=== PATIENT | male | born 1940 | race Caucasian/White ===

== ENCOUNTER → 2017-11-23 | Outpatient (CLI) | payer MEDICARE ==
[~2017-11-23] MED LIST: ASPI-496 PO; PRAV20TA2 PO
[2017-11-23 09:55] LABS: MICROSCOPIC NOT IND
[2017-11-23 09:58] LABS: BASOPHILS # (AUTO) 0.02 x10^3/uL (0-0.1); BASOPHILS % (AUTO) 0 % (0-1); EOSINOPHILS # (AUTO) 0.28 x10^3/uL (0-0.4); EOSINOPHILS % (AUTO) 4 % (1-7); LYMPHOCYTES # (AUTO) 1.37 x10^3/uL (1-3.4); LYMPHOCYTES % (AUTO) 21 % (22-44); MD NO; MEAN CORPUSCULAR HEMOGLOBIN 29.8 pg (27.5-34.5); MEAN CORPUSCULAR HGB CONC 33.9 g/dL (33.2-36.2); MEAN PLATELET VOLUME 8.1 fL (7.4-10.4); MONOCYTES # (AUTO) 0.45 x10^3/uL (0.2-0.8); MONOCYTES % (AUTO) 7 % (2-9); NEUTROPHILS # (AUTO) 4.34 x10^3/uL (1.8-6.8); NEUTROPHILS % (AUTO) 67 % (42-75); PLATELET COUNT 158 x10^3/uL (130-400); RED BLOOD COUNT 5.01 x10^6/uL (4.38-5.82); RED CELL DISTRIBUTION WIDTH 14.2 % (9.4-14.8)
[2017-11-23 10:07] LABS: ANION GAP 5 mmol/L (5-15); CHLORIDE 107 mmol/L (98-107)
[2017-11-23 10:11] LABS: CULTURE INDICATED? NO
== END | disposition home or self-care (01) ==
LOC: STAR 08:37
PROVIDERS: ATTEND Orthopaedic Surgery
DX: Z01.818 Encounter for other preprocedural examination (principal); M17.11 Unilateral primary osteoarthritis, right knee; I45.10 Unspecified right bundle-branch block; I25.2 Old myocardial infarction
CPT/HCPCS: 36415; 80048; 81003; 85025; 87081; 93005

== ENCOUNTER 2017-11-28 06:20 | Observation (INO) | payer MEDICARE ==
[~2017-11-28] VITALS: Ht 182.9 cm; Wt 99.0 kg
[2017-11-28] MEDS ORDERED: ACETAMINOPHEN 500 MG TABLET PO ONE (07:00)
[2017-11-28] MEDS ORDERED: ONDANSETRON ODT 8 MG PO ONE (07:00)
[2017-11-28] MEDS ORDERED: TAMSULOSIN 0.4 MG CAP.ER.24H PO ONE (07:00)
[2017-11-28] MEDS ORDERED: GABAPENTIN 300 MG CAPSULE PO ONE (07:00)
[2017-11-28] MEDS ORDERED: LACTATED RINGERS 1,000 ML IV SCH (07:01)
[2017-11-28] MEDS ORDERED: VARE1TAB21 PO (07:23)
[2017-11-28] MEDS ORDERED: MIDAZOLAM 1 MG/ML, 2ML ONE (08:11)
[2017-11-28] MEDS ORDERED: FENTANYL PF 100 MCG/2ML ONE (08:11)
[2017-11-28] MEDS ORDERED: PROPOFOL 50 ML ONE (08:32)
[2017-11-28] MEDS ORDERED: KETOROLAC 60 MG/2 ML ONE (08:40)
[2017-11-28] MEDS ORDERED: ROPIvacaine/PF 0.2%, 20 ML ONE (08:40)
[2017-11-28] MEDS ORDERED: TRANEXAMIC ACID 100 MG/ML, 10ML ONE (08:40)
[2017-11-28] MEDS ORDERED: SODIUM CHLORIDE 0.9% 100 ML ONE (08:41)
[2017-11-28] MEDS ORDERED: EPINEPHRINE 1 MG/ML, 1ML ONE (08:41)
[2017-11-28] MEDS ORDERED: DEXAMETHASONE 4 MG/ML, 1ML ONE (08:57)
[2017-11-28] MEDS ORDERED: PROPOFOL 10 MG/ML, 50ML ONE (08:57)
[2017-11-28] MEDS ORDERED: CEFAZOLIN 1,000 MG ONE (08:57)
[2017-11-28] MEDS ORDERED: SENNA/DOCUSATE TABLET PO PRN (11:00)
[2017-11-28] MEDS ORDERED: PROMETHAZINE 25 MG/ML, 1ML IM PRN (11:00)
[2017-11-28] MEDS ORDERED: HYDROcodone/APAP 5/325 TABLET PO PRN (11:00)
[2017-11-28] MEDS ORDERED: FENTANYL PF 100 MCG/2ML IV PRN (11:00)
[2017-11-28] MEDS ORDERED: OXYcodone IR 5MG TABLET PO PRN (11:00)
[2017-11-28] MEDS ORDERED: ONDANSETRON 4 MG TABLET PO PRN (11:00)
[2017-11-28] MEDS ORDERED: MAGNESIUM HYDROXIDE 8%, 30ML UDC PO PRN (11:00)
[2017-11-28] MEDS ORDERED: HYDROmorphone 1 MG/ML, 1ML IV PRN ×2 (11:00)
[2017-11-28] MEDS ORDERED: ACETAMINOPHEN 650 MG/20.3 ML UDC PO PRN (11:00)
[2017-11-28] MEDS ORDERED: PROMETHAZINE 12.5 MG SUPP PR PRN (11:00)
[2017-11-28] MEDS ORDERED: ONDANSETRON 2MG/ML, 2ML IV PRN ×2 (11:00)
[2017-11-28] MEDS ORDERED: MEPERIDINE/PF 25MG/0.5ML IVPush PRN (11:00)
[2017-11-28] MEDS ORDERED: MIDAZOLAM 1 MG/ML, 2ML IV PRN (11:00)
[2017-11-28] MEDS ORDERED: ALUMINUM/MAG/SIMETHICONE 30 ML UDC PO PRN (11:00)
[2017-11-28] MEDS ORDERED: DIAZEPAM 5 MG TABLET PO PRN (11:00)
[2017-11-28] MEDS ORDERED: OXYcodone 5 MG/5 ML ORAL.SOL UDC PO PRN (11:00)
[2017-11-28] MEDS ORDERED: LABETALOL 5MG/ML, 20ML IV PRN (11:00)
[2017-11-28] MEDS ORDERED: ZOLPIDEM 5MG TABLET PO PRN (11:00)
[2017-11-28] MEDS ORDERED: TRANEXAMIC ACID 1,000 MG in SODIUM CHLORIDE 0.9% 100 ML IVPB ONE (11:00)
[2017-11-28] MEDS ORDERED: DIPHENHYDRAMINE 25 MG CAPSULE PO PRN (11:00)
[2017-11-28] MEDS ORDERED: BISACODYL 10 MG SUPP PR PRN (11:00)
[2017-11-28] MEDS ORDERED: PROMETHAZINE 25 MG/ML, 1ML IV PRN (11:00)
[2017-11-28] MEDS ORDERED: OXYcodone 5 MG/5 ML ORAL.SOL UDC ONE (11:29)
[2017-11-28 12:45] VITALS: BP 143/74
[2017-11-28] MEDS ORDERED: CEFAZOLIN 2,000 MG in SODIUM CHLORIDE 0.9% 50 ML IVPB SCH (13:00)
[2017-11-28] MEDS: D5%-0.45% NACL 1,000 ML IV SCH (17:21)
[2017-11-28] MEDS: CEFAZOLIN 2,000 MG in SODIUM CHLORIDE 0.9% 50 ML IVPB SCH (17:21)
[2017-11-28] MEDS: ASPIRIN 81 MG TABLET EC PO SCH (18:00)
[2017-11-28 18:40] VITALS: BP 135/69
[2017-11-28] MEDS: DOCUSATE 100 MG CAPSULE PO SCH (19:54)
[2017-11-28] MEDS ORDERED: PRAVASTATIN 20 MG TABLET PO SCH (21:00)
[2017-11-28 23:50] VITALS: BP 122/59
[2017-11-29] MEDS: CEFAZOLIN 2,000 MG in SODIUM CHLORIDE 0.9% 50 ML IVPB SCH (01:16)
[2017-11-29] MEDS: D5%-0.45% NACL 1,000 ML IV SCH (03:00)
[2017-11-29 03:48] VITALS: BP 129/73
[2017-11-29] MEDS: ASPIRIN 81 MG TABLET EC PO SCH (05:41)
[2017-11-29] MEDS ORDERED: DEXAMETHASONE 4 MG/ML, 1ML IVPush SCH (06:00)
[2017-11-29 08:00] VITALS: BP 152/81
[2017-11-29] MEDS: DOCUSATE 100 MG CAPSULE PO SCH (09:02)
[2017-11-29] MEDS ORDERED: HYDR-882 PO (09:36)
[2017-11-29] MEDS ORDERED: KETOROLAC 30 MG/1 ML IV SCH (11:00)
== END 2017-11-29 10:47 | disposition home or self-care (01) ==
LOC: OUT 06:20 → ORIP 10:50 → 4NOR 12:45
PROVIDERS: ADMIT Orthopaedic Surgery; ATTEND Orthopaedic Surgery
DX: M17.11 Unilateral primary osteoarthritis, right knee (principal); E78.5 Hyperlipidemia, unspecified; Z87.891 Personal history of nicotine dependence
CPT/HCPCS: 27447; 36415; 73560; 85014; 85018; 96365; 96366; 97150; 97161; C1713; C1776; G0378; G8978; J0171; J0690; J1100; J1885; J2250; J2704; J2795; J3010; J7120; Q0162; CI